=== PATIENT | male | born 1960 | race Caucasian/White ===

== ENCOUNTER 2020-03-29 15:36 | Emergency (ER) | payer OTHER ==
[2020-03-29 15:58] VITALS: BP 192/112
[2020-03-29] MEDS ORDERED: DIPH,PERTUS(ACELL)TETVAC-LF 0.5 ML VIAL IM ONE (15:58)
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
--- NOTE | 2020-03-29 16:57 | CT ---
EXAMINATION TYPE: CT brain cspine wo con DATE OF EXAM: 03/29/2020 COMPARISON: None HISTORY: Fall, head injury. ETOH. Headache. Neck pain CT DLP: 1684.2 mGycm Automated exposure control for dose reduction was used. There is mild cerebral atrophy. There is no mass effect nor midline shift. There is no sign of intrac ranial hemorrhage. The calvarium is intact. Cervical vertebra have normal alignment. C7 not well seen due to the shoulders and patient motion. Th ere is no evidence for fracture. There is narrowing of C5-6 and C6-7 disc spaces. Facet joints are in tact. Skull base is intact. There is normal aeration of the mastoid sinuses. Occipital bone is intact . IMPRESSION: Cerebral atrophy. No acute intracranial abnormality. 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 No fracture. Limited exam.
== END 2020-03-29 18:22 | disposition other institution (70) ==
LOC: EC 15:36
DX: S00.01XA Abrasion of scalp, initial encounter (principal); F10.129 Alcohol abuse with intoxication, unspecified; V19.9XXA Pedal cyclist (driver) (passenger) injured in unspecified traffic accident, initial encounter; Y93.55 Activity, bike riding
CPT/HCPCS: 70450; 72125; 99285